=== PATIENT | male | born 1965 | race Caucasian/White ===

== ENCOUNTER → 2018-05-08 | Outpatient (REF) | payer OTHER ==
[2018-05-08 19:33] LABS: APPEARANCE, URINE CLEAR (CLEAR); BACTERIA, URINE AUTO NEGATIVE (NEGATIVE); BILIRUBIN, URINE AUTO NEGATIVE (NEGATIVE); BLOOD, URINE BLOOD 2+ (NEGATIVE); COLOR, URINE YELLOW (YELLOW); GLUCOSE, URINE (UA) AUTO NEGATIVE (NEGATIVE); KETONE, URINE AUTO NEGATIVE (NEGATIVE); LEUKOCYTE ESTERASE, URINE AUTO NEGATIVE (NEGATIVE); MUCUS, URINE SMALL (NEGATIVE); NITRITE, URINE AUTO NEGATIVE (NEGATIVE); PROTEIN, URINE AUTO NEGATIVE (NEGATIVE); RBC, URINE AUTO TNTC /HPF (0-3); SPECIFIC GRAVITY URINE AUTO 1.014 (1.002-1.035); SQUAMOUS EPITHELIAL CELL UR AU 0 /HPF (0-6); UROBILINOGEN, URINE AUTO 0.2 mg/dL (0.0-2.0); WBC, URINE AUTO 0 /HPF (0-3)
== END ==
LOC: M SMT 17:26
DX: N20.1 Calculus of ureter (principal)

== ENCOUNTER → 2018-05-27 | Outpatient (CLI) | payer OTHER ==
[~2018-05-27] MED LIST: ISOVUE-370 76% 100ML VIAL (Q9967) As Ordered
== END ==
LOC: M RAD 16:08
DX: R31.0 Gross hematuria (principal); N20.0 Calculus of kidney; K76.89 Other specified diseases of liver; E27.8 Other specified disorders of adrenal gland
CPT/HCPCS: Q9967

== ENCOUNTER → 2018-06-04 | Outpatient (REF) | payer OTHER ==
[2018-06-04 19:30] LABS: APPEARANCE, URINE CLEAR (CLEAR); BACTERIA, URINE AUTO NEGATIVE (NEGATIVE); BILIRUBIN, URINE AUTO NEGATIVE (NEGATIVE); BLOOD, URINE BLOOD NEGATIVE (NEGATIVE); COLOR, URINE STRAW (YELLOW); GLUCOSE, URINE (UA) AUTO NEGATIVE (NEGATIVE); KETONE, URINE AUTO NEGATIVE (NEGATIVE); LEUKOCYTE ESTERASE, URINE AUTO NEGATIVE (NEGATIVE); NITRITE, URINE AUTO NEGATIVE (NEGATIVE); PROTEIN, URINE AUTO NEGATIVE (NEGATIVE); RBC, URINE AUTO 0 /HPF (0-3); SPECIFIC GRAVITY URINE AUTO 1.008 (1.002-1.035); SQUAMOUS EPITHELIAL CELL UR AU 0 /HPF (0-6); UROBILINOGEN, URINE AUTO 0.2 mg/dL (0.0-2.0); WBC, URINE AUTO 0 /HPF (0-3)
== END ==
LOC: M SMT 17:40
DX: R31.0 Gross hematuria (principal)

== ENCOUNTER 2018-06-13 06:32 | Day surgery (SDC) | payer OTHER ==
[2018-06-13] MEDS ORDERED: fentaNYL 100 MCG/2 ML INJECTION (J3010) As Ordered (07:01)
[2018-06-13] MEDS ORDERED: MIDAZOLAM INJ 2 MG/2 ML VIAL (J2250) As Ordered (07:01)
[2018-06-13] MEDS ORDERED: ceFAZolin 2 GM/D5W 50 ML IV BAG (J0690 PER 500MG) As Ordered (07:04)
[2018-06-13] MEDS ORDERED: PROPOFOL 200 MG/20 ML VIAL As Ordered ×2 (07:05→07:51)
[2018-06-13] MEDS ORDERED: LIDOCAINE 2% INJ 100 MG/5 ML SDV (FOR ANES.) As Ordered (07:05)
[2018-06-13] MEDS: LR 1,000 ML IV (07:21)
[2018-06-13 07:54] LABS: INR 0.96; PROTHROMBIN TIME 12.9 SECONDS (12.1-14.4)
== END 2018-06-13 09:10 | disposition home or self-care (01) ==
LOC: M SDC 06:32
DX: N20.0 Calculus of kidney (principal); Z79.899 Other long term (current) drug therapy; Z87.891 Personal history of nicotine dependence; Z88.5 Allergy status to narcotic agent
CPT/HCPCS: 50590

== ENCOUNTER → 2018-06-24 | Outpatient (CLI) | payer OTHER | LOC: M SMT 10:01 | DX: N20.0 Calculus of kidney (principal) | CPT/HCPCS: 74018 ==

== ENCOUNTER → 2018-06-24 | Outpatient (REF) | payer OTHER ==
[2018-07-02 00:07] LABS: COMMENT Note: (.)
== END ==
LOC: M SMT 16:58
DX: N20.0 Calculus of kidney (principal)

== ENCOUNTER → 2018-07-15 | Outpatient (CLI) | payer OTHER | LOC: M RAD 16:18 | DX: N20.0 Calculus of kidney (principal) | CPT/HCPCS: 74176 ==

== ENCOUNTER → 2023-11-21 | Day surgery (SDC) | payer OTHER ==
[~2023-11-21] VITALS: Ht 177.8 cm; Wt 129.1 kg
[~2023-11-21] MED LIST changes: +ALBUTEROL SULFATE 2.5MG/0.5ML INH NEB SOLN INH ONE; +ALLO100T PO; +BACITRACIN OINTMENT 30GM TUBE As Ordered ONE; +BUSP10TA PO; +COLE625T PO; +EZET10TA21 PO; +FLOM0.4C39 PO; +IRON240T PO; -ISOVUE-370 76% 100ML VIAL (Q9967) As Ordered; +LIDOCAINE PRES-FREE 2% 10ML AMP INH ONE; +LIDOCAINE W/EPINEPHRINE 1% 20ML VIAL XX ONE; +MULTCAP PO; +OMEG10002 PO; +SODIUM BICARBONATE 8.4% INJ 50MEQ 50ML VIAL XX ONE; +THERTAB52 PO; +VITA100018 PO
[2023-11-21 09:38] VITALS: BP 178/84; TEMP 97.4; O2SAT 97
== END | disposition home or self-care (01) ==
LOC: M SDC 07:07
PROVIDERS: ATTEND Orthopaedic Surgery Hand Surgery
DX: M65.332 Trigger finger, left middle finger (principal); E78.00 Pure hypercholesterolemia, unspecified; Z79.899 Other long term (current) drug therapy; Z88.5 Allergy status to narcotic agent; Z96.652 Presence of left artificial knee joint; Z98.84 Bariatric surgery status